=== PATIENT | female | born 1990 | race African-American/Black ===

== ENCOUNTER 2017-03-31 10:49 | Emergency (ER) | payer SELFPAY ==
[~2017-03-31] VITALS: Ht 170.2 cm; Wt 81.6 kg
--- NOTE | 2017-03-31 11:39 | PHYS DOC ---
Past Medical History Past Medical History: Other Additional Past Medical Histor: tumor RLE (KNEE) Past Surgical History: Other Additional Past Surgical Histo: bone marrow transplant Alcohol Use: Occasionally Drug Use: Marijuana Adult General Chief Complaint Chief Complaint: NAUSEA/VOMITING/DIARRHA HPI HPI Patient is a 27 year old female who presents with complaint of nausea and vomiting for the past 3 days. Patient states that she has been having several episodes of vomiting and has had cramping abdominal pain with loose stools. Patient states currently she does not have any pain. Patient states she only gets the pain right before having a bowel movement. Patient denies any known sick contacts but states that she does work at a [employer] and may have contracted something from there. The patient denies any fevers. Patient states that she tried to take Tylenol for symptoms with no relief. Patient states that she has been drinking fluids but has not been eating much over the past few days. Patient states her last missed her period was March 27, 2017. Patient denies any abdominal surgeries. Review of Systems Review of Systems Constitutional: Denies fever or chills [] Eyes: Denies change in visual acuity, redness, or eye pain [] HENT: Denies nasal congestion or sore throat [] Respiratory: Denies cough or shortness of breath [] Cardiovascular: Denies chest pain or edema [] GI: Nausea, vomiting, diarrhea, abdominal cramps [] : Denies vaginal bleeding, abnormal discharge, dysuria, or hematuria [] Musculoskeletal: Denies back pain or joint pain [] Integument: Denies rash or skin lesions [] Neurologic: Denies headache, focal weakness or sensory changes [] Current Medications Current Medications Current Medications Medications (Trade) Dose Ordered Sig/[facility] Start Time Stop Time Status Last Admin Dose Admin Ondansetron HCl (Zofran Odt) 8 mg 1X ONCE 03/31/17 12:00 03/31/17 12:01 DC 03/31/17 11:42 8 MG Allergies Allergies Allergies Coded Allergies Type Severity Reaction Last Updated Verified Penicillins Allergy Intermediate 06/06/16 Yes morphine Allergy Intermediate hives 02/16/14 No Physical Exam Physical Exam Constitutional: Well developed, well nourished, no acute distress, non-toxic appearance. [] HENT: Normocephalic, atraumatic, bilateral external ears normal, oropharynx moist, no oral exudates, nose normal. [] Eyes: PERRLA, EOMI, conjunctiva normal, no discharge. [] Neck: Normal range of motion, no tenderness, supple, no stridor. [] Cardiovascular:Heart rate regular rhythm, no murmur [] Lungs & Thorax: Bilateral breath sounds clear to auscultation [] Abdomen: Bowel sounds normal, soft, no tenderness, no masses, no pulsatile masses. [] Skin: Warm, dry, no erythema, no rash. [] Back: No tenderness, no CVA tenderness. [] Extremities: No tenderness, no cyanosis, no clubbing, ROM intact, no edema. [] Neurologic: Alert and oriented X 3, normal motor function, normal sensory function, no focal deficits noted. [] Current Patient Data Vital Signs Vital Signs Date Time Temp Pulse Resp B/P (MAP) Pulse Ox O2 Delivery O2 Flow Rate FiO2 03/31/17 11:05 98.3 65 16 111/69 (83) 100 Room Air 98.3 Lab Values Laboratory Tests Test 03/31/17 10:21 03/31/17 11:12 POC Urine HCG, Qualitative Hcg negative (Negative) Urine Collection Type Unknown Urine Color Yellow Urine Clarity Cloudy Urine pH 6.0 Urine Specific Hawley 1.015 Urine Protein Negative mg/dL (NEG-TRACE) Urine Glucose (UA) Negative mg/dL (NEG) Urine Ketones (Stick) Negative mg/dL (NEG) Urine Blood Large (NEG) Urine Nitrite Negative (NEG) Urine Bilirubin Negative (NEG) Urine Urobilinogen Dipstick 0.2 mg/dL (0.2 mg/dL) Urine Leukocyte Esterase Small (NEG) Urine RBC 3-5 /HPF (0-2) Urine WBC 11-20 /HPF (0-4) Urine Squamous Epithelial Cells Many /LPF Urine Bacteria Many /HPF (0-FEW) Urine Mucus Marked /LPF EKG EKG Not performed [] Radiology/Procedures Radiology/Procedures Not performed [] Course & Med Decision Making Course & Med Decision Making Pertinent Labs and Imaging studies reviewed. (See chart for details) The patient was given oral Zofran in the emergency department with improvement in symptoms. The patient's symptoms appear consistent with a viral gastroenteritis. Patient's urinalysis shows evidence of urinary tract infection. The patient will be started on Macrobid for 7 days of treatment. Patient also will be prescribed Zofran to help with treatment and nausea. Advise follow-up in 3-5 days a primary doctor for reevaluation and return to emergency department for any worsening symptoms. Patient was understanding and in agreement with treatment plan. Dragon Disclaimer Dragon Disclaimer This electronic medical record was generated, in whole or in part, using a voice recognition dictation system. Departure Departure Impression: Primary Impression: Nausea and vomiting Additional Impressions: Diarrhea Urinary tract infection Disposition: HOME, SELF-CARE Condition: IMPROVED Referrals: NO PCP (PCP) Patient Instructions: Diarrhea, Nausea and Vomiting, Urinary Tract Infection Additional Instructions: Follow-up with your primary doctor in 3-5 days of symptoms are not improving. Return to the emergency department for any worsening symptoms. Scripts Ondansetron (ZOFRAN ODT) 4 Mg Tab.rapdis 1 TAB SL Q6HRS Y for NAUSEA/VOMITING, #15 TAB Prov: JOLIE JENKINS MD 03/31/17 Nitrofurantoin Monohyd/M-Cryst (MACROBID 100 MG CAPSULE) 100 Mg Capsule 1 CAP PO BID, #14 CAP Prov: JOLIE JENKINS MD 03/31/17 Problem Qualifiers Primary Impression: Nausea and vomiting Vomiting type: unspecified Vomiting Intractability: non-intractable Qualified Codes: R11.2 - Nausea with vomiting, unspecified Additional Impressions: Diarrhea Diarrhea type: presumed infectious Qualified Codes: A09 - Infectious gastroenteritis and colitis, unspecified Urinary tract infection Urinary tract infection type: site unspecified Hematuria presence: without hematuria Qualified Codes: N39.0 - Urinary tract infection, site not specified JOLIE JENKINS MD Mar 31, 2017 11:39
[2017-03-31 11:46] LABS: BILIRUBIN,URINE NEGATIVE (NEG); GLUCOSE,URINE NEGATIVE (NEG); NITRITE,URINE NEGATIVE (NEG); PROTEIN,URINE NEGATIVE (NEG-TRACE); UROBILINOGEN,URINE 0.2 mg/dL (0.2 mg/dL)
[2017-03-31] MEDS ORDERED: ONDANSETRON ODT 4 MG TAB.RAPDIS. PO ONE (12:00)
[2017-03-31 12:06] LABS: SQUAMOUS EPITHELIAL CELL,UR MANY /LPF
[2017-03-31 12:07] LABS: BACTERIA,URINE MANY /HPF (0-FEW)
[2017-03-31 12:10] VITALS: BP 105/58
[2017-03-31] MEDS ORDERED: ONDA4TAB10 SL (12:14)
[2017-03-31] MEDS ORDERED: NITR100C62 PO (12:14)
== END 2017-03-31 12:32 | disposition home or self-care (01) ==
LOC: ER 10:49
DX: R11.2 Nausea with vomiting, unspecified (principal); A09 Infectious gastroenteritis and colitis, unspecified; N39.0 Urinary tract infection, site not specified; F12.10 Cannabis abuse, uncomplicated; Z88.0 Allergy status to penicillin; Z88.5 Allergy status to narcotic agent
CPT/HCPCS: 81001; 81025; 87086; 99284; Q0162; 10120; 99285-25

== ENCOUNTER 2017-11-26 16:07 | Observation (INO) | payer OTHER ==
[2017-11-26] MEDS ORDERED: IV DEXTROSE 5%-LACT RINGERS 1,000 ML IV (16:45)
[2017-11-26] MEDS: chlorproMAZINE 25 MG in IV DEXTROSE 5% 50 ML IV (17:37)
[2017-11-26 17:42] LABS: ADD MAN DIFF? NO
[2017-11-26 17:45] LABS: BASO # 0.1 x10^3/uL (0.0-0.2); BASO % 1 % (0-3); EOS # 0.1 x10^3/uL (0.0-0.7); EOS % 1 % (0-3); HEMATOCRIT 33.6 % (36.0-47.0); HEMOGLOBIN 11.2 g/dL (12.0-15.5); LYMPH # 2.3 x10^3/uL (1.0-4.8); LYMPH % 19 % (24-48); MEAN CORPUSCULAR HEMOGLOBIN 29 pg (25-35); MEAN CORPUSCULAR HGB CONC 33 g/dL (31-37); MEAN CORPUSCULAR VOLUME 88 fL (79-100); MONO # 0.5 x10^3/uL (0.0-1.1); MONO % 4 % (0-9); NEUT # 8.9 x10^3uL (1.8-7.7); NEUT % 75 % (31-73); PLATELET COUNT 310 x10^3/uL (140-400); RED BLOOD COUNT 3.82 x10^6/uL (3.50-5.40); RED CELL DISTRIBUTION WIDTH 14.3 % (11.5-14.5); WHITE BLOOD COUNT 11.8 x10^3/uL (4.0-11.0)
[2017-11-26 18:04] LABS: ALBUMIN 3.4 g/dL (3.4-5.0); ALBUMIN/GLOBULIN RATIO 0.9 (1.0-1.7); ALK PHOS 60 U/L (46-116); ALT (SGPT) 23 U/L (14-59); ANION GAP 13 (6-14); AST (SGOT) 10 U/L (15-37); BLOOD UREA NITROGEN 5 mg/dL (7-20); BUN/CREATININE RATIO 7 (6-20); CALCIUM 9.1 mg/dL (8.5-10.1); CARBON DIOXIDE 22 mmol/L (21-32); CHLORIDE 101 mmol/L (98-107); CREATININE 0.7 mg/dL (0.6-1.0); GFR 122.4; GLUCOSE 128 mg/dL (70-99); SODIUM 136 mmol/L (136-145); TOTAL BILIRUBIN 0.3 mg/dL (0.2-1.0); TOTAL PROTEIN 7.4 g/dL (6.4-8.2)
[2017-11-26 19:47] LABS: BILIRUBIN,URINE NEGATIVE (NEG); CLARITY,URINE CLOUDY; COLOR,URINE YELLOW; GLUCOSE,URINE NEGATIVE (NEG); NITRITE,URINE NEGATIVE (NEG); PH,URINE 6.5; PROTEIN,URINE NEGATIVE (NEG-TRACE); UROBILINOGEN,URINE 0.2 mg/dL (0.2 mg/dL)
[2017-11-26 19:55] LABS: AMORPHOUS SEDIMENT,UR PRESENT /HPF; BACTERIA,URINE 0 /HPF (0-FEW); RBC,URINE 0 /HPF (0-2); SQUAMOUS EPITHELIAL CELL,UR FEW /LPF; WBC,URINE OCC /HPF (0-4); YEAST,URINE PRESENT /HPF
== END 2017-11-26 21:20 | disposition home or self-care (01) ==
LOC: 3 NORTH 16:07
DX: O21.0 Mild hyperemesis gravidarum (principal); Z3A.10 10 weeks gestation of pregnancy
CPT/HCPCS: 36415; 80053; 81001; 85025; 87086; 96365; G0378; G0379; J3230

== ENCOUNTER 2017-11-27 21:29 | Inpatient (IN) | payer OTHER ==
[2017-11-27] MEDS: METOCLOPRAMIDE HCL 10 MG/2 ML VIAL. IV (22:04)
[2017-11-27] MEDS: IV NORMAL SALINE 1000ML BAG 1,000 ML IV (22:05)
[2017-11-27 22:06] LABS: ADD MAN DIFF? NO
[2017-11-27 22:09] LABS: BASO # 0.1 x10^3/uL (0.0-0.2); BASO % 1 % (0-3); EOS % 0 % (0-3); HEMATOCRIT 35.9 % (36.0-47.0); HEMOGLOBIN 12.1 g/dL (12.0-15.5); LYMPH # 1.9 x10^3/uL (1.0-4.8); LYMPH % 14 % (24-48); MEAN CORPUSCULAR HEMOGLOBIN 29 pg (25-35); MEAN CORPUSCULAR HGB CONC 34 g/dL (31-37); MEAN CORPUSCULAR VOLUME 87 fL (79-100); MONO # 0.4 x10^3/uL (0.0-1.1); MONO % 3 % (0-9); NEUT % 83 % (31-73); PLATELET COUNT 370 x10^3/uL (140-400); RED BLOOD COUNT 4.13 x10^6/uL (3.50-5.40); RED CELL DISTRIBUTION WIDTH 14.1 % (11.5-14.5); WHITE BLOOD COUNT 14.4 x10^3/uL (4.0-11.0)
[2017-11-27 22:17] LABS: ANION GAP 19 (6-14); BLOOD UREA NITROGEN 11 mg/dL (7-20); BUN/CREATININE RATIO 10 (6-20); CALCIUM 10.8 mg/dL (8.5-10.1); CARBON DIOXIDE 18 mmol/L (21-32); CHLORIDE 100 mmol/L (98-107); CREATININE 1.1 mg/dL (0.6-1.0); GFR 72.6; GLUCOSE 142 mg/dL (70-99); POTASSIUM 4.2 mmol/L (3.5-5.1); SODIUM 137 mmol/L (136-145)
[2017-11-27 22:23] LABS: ALBUMIN 4.2 g/dL (3.4-5.0); ALBUMIN/GLOBULIN RATIO 0.9 (1.0-1.7); ALK PHOS 75 U/L (46-116); ALT (SGPT) 33 U/L (14-59); AST (SGOT) 16 U/L (15-37); LIPASE 309 U/L (73-393); TOTAL BILIRUBIN 0.6 mg/dL (0.2-1.0); TOTAL PROTEIN 8.9 g/dL (6.4-8.2)
[2017-11-27] MEDS: ONDANSETRON PF 4 MG/2 ML VIAL. IV (22:59)
[2017-11-27 23:23] LABS: URINE HCG POC HCG POSITIVE (Negative)
[2017-11-27 23:25] LABS: BILIRUBIN,URINE SMALL (NEG); CLARITY,URINE CLEAR; COLOR,URINE AMBER; GLUCOSE,URINE NEGATIVE (NEG); NITRITE,URINE NEGATIVE (NEG); PH,URINE 5.5; PROTEIN,URINE 100 mg/dL (NEG-TRACE); UROBILINOGEN,URINE 0.2 mg/dL (0.2 mg/dL)
[2017-11-27] MEDS ORDERED: ACETAMINOPHEN 325 MG TABLET. PO (23:30)
[2017-11-27 23:33] LABS: BACTERIA,URINE FEW /HPF (0-FEW); RBC,URINE 20-40 /HPF (0-2); SQUAMOUS EPITHELIAL CELL,UR MOD /LPF
[2017-11-27] MEDS: NORMAL SALINE IV (23:42)
[2017-11-27] MEDS: ONDANSETRON IV (23:42)
[2017-11-28] MEDS: fentaNYL PF VIAL 100 MCG/2 ML VIAL IV ×3 (03:11→12:31)
[2017-11-28 05:50] LABS: ANION GAP 18 (6-14); BLOOD UREA NITROGEN 10 mg/dL (7-20); CALCIUM 9.6 mg/dL (8.5-10.1); CARBON DIOXIDE 17 mmol/L (21-32); CHLORIDE 103 mmol/L (98-107); CREATININE 0.9 mg/dL (0.6-1.0); GFR 91.6; GLUCOSE 129 mg/dL (70-99); POTASSIUM 3.2 mmol/L (3.5-5.1); SODIUM 138 mmol/L (136-145)
[2017-11-28] MEDS ORDERED: IV NORMAL SALINE 1000ML BAG 1,000 ML IV (10:00)
[2017-11-28] MEDS: ONDANSETRON IV ×3 (10:15→21:17)
[2017-11-28] MEDS: NORMAL SALINE IV ×3 (10:15→21:17)
[2017-11-28] MEDS: POTASSIUM CHLORIDE IV ×3 (10:15→21:17)
[2017-11-28] MEDS: ONDANSETRON PF 4 MG/2 ML VIAL. IV (12:24)
[2017-11-28] MEDS: chlorproMAZINE 25 MG in IV DEXTROSE 5% 50 ML IV (16:50)
[2017-11-28] MEDS: FAMOTIDINE 20 MG/2 ML VIAL IVP (21:17)
[2017-11-29] MEDS: fentaNYL PF VIAL 100 MCG/2 ML VIAL IV ×2 (01:14→05:43)
[2017-11-29] MEDS: ONDANSETRON IV ×3 (01:15→17:34)
[2017-11-29] MEDS: POTASSIUM CHLORIDE IV ×2 (01:15→07:26)
[2017-11-29] MEDS: NORMAL SALINE IV ×3 (01:15→17:34)
[2017-11-29] MEDS: chlorproMAZINE 25 MG in IV DEXTROSE 5% 50 ML IV ×3 (03:55→20:20)
[2017-11-29 05:49] LABS: HEMATOCRIT 30.1 % (36.0-47.0); MEAN CORPUSCULAR HEMOGLOBIN 29 pg (25-35); MEAN CORPUSCULAR HGB CONC 33 g/dL (31-37); MEAN CORPUSCULAR VOLUME 87 fL (79-100); PLATELET COUNT 263 x10^3/uL (140-400); RED BLOOD COUNT 3.45 x10^6/uL (3.50-5.40); RED CELL DISTRIBUTION WIDTH 14.1 % (11.5-14.5); WHITE BLOOD COUNT 12.1 x10^3/uL (4.0-11.0)
[2017-11-29 06:15] LABS: ALBUMIN 3.3 g/dL (3.4-5.0); ALBUMIN/GLOBULIN RATIO 0.9 (1.0-1.7); ALK PHOS 57 U/L (46-116); ALT (SGPT) 33 U/L (14-59); AMYLASE 79 U/L (25-115); ANION GAP 13 (6-14); AST (SGOT) 16 U/L (15-37); BLOOD UREA NITROGEN 5 mg/dL (7-20); BUN/CREATININE RATIO 7 (6-20); CALCIUM 8.8 mg/dL (8.5-10.1); CARBON DIOXIDE 18 mmol/L (21-32); CHLORIDE 104 mmol/L (98-107); CREATININE 0.7 mg/dL (0.6-1.0); GFR 122.4; GLUCOSE 113 mg/dL (70-99); LIPASE 396 U/L (73-393); POTASSIUM 4.2 mmol/L (3.5-5.1); SODIUM 135 mmol/L (136-145); TOTAL BILIRUBIN 0.4 mg/dL (0.2-1.0)
[2017-11-29] MEDS: FAMOTIDINE 20 MG/2 ML VIAL IVP ×2 (09:19→21:00)
[2017-11-29] MEDS: DICLEGIS PO (21:00)
[2017-11-30] MEDS: ONDANSETRON IV ×6 (01:15→17:10)
[2017-11-30] MEDS: NORMAL SALINE IV ×4 (01:15→07:20)
[2017-11-30] MEDS: chlorproMAZINE 25 MG in IV DEXTROSE 5% 50 ML IV (07:20)
[2017-11-30 08:34] LABS: ALBUMIN 3.1 g/dL (3.4-5.0); ALBUMIN/GLOBULIN RATIO 0.8 (1.0-1.7); ALK PHOS 51 U/L (46-116); ALT (SGPT) 43 U/L (14-59); AMYLASE 89 U/L (25-115); ANION GAP 14 (6-14); AST (SGOT) 22 U/L (15-37); BLOOD UREA NITROGEN 3 mg/dL (7-20); BUN/CREATININE RATIO 4 (6-20); CALCIUM 8.6 mg/dL (8.5-10.1); CARBON DIOXIDE 19 mmol/L (21-32); CHLORIDE 103 mmol/L (98-107); CREATININE 0.7 mg/dL (0.6-1.0); GFR 122.4; GLUCOSE 95 mg/dL (70-99); LIPASE 523 U/L (73-393); SODIUM 136 mmol/L (136-145); TOTAL BILIRUBIN 0.6 mg/dL (0.2-1.0)
[2017-11-30 08:38] LABS: POTASSIUM 3.1 mmol/L (3.5-5.1)
[2017-11-30] MEDS: FAMOTIDINE 20 MG TABLET. PO ×2 (09:27→21:00)
[2017-11-30] MEDS: DICLEGIS PO ×3 (09:28→22:00)
[2017-11-30] MEDS ORDERED: RINGERS LACTATED IV (12:00)
[2017-11-30] MEDS ORDERED: ONDANSETRON IV (12:00)
[2017-11-30] MEDS: POTASSIUM CHLORIDE IV (13:46)
[2017-11-30] MEDS: RINGERS LACTATED IV ×2 (13:46→17:10)
[2017-11-30] MEDS ORDERED: ONDANSETRON PF 4 MG/2 ML VIAL. IV ×2 (14:00→21:00)
[2017-12-01] MEDS: RINGERS LACTATED IV ×2 (04:10→13:21)
[2017-12-01] MEDS: ONDANSETRON IV ×2 (04:10→13:21)
[2017-12-01 07:15] LABS: TRIGLYCERIDES 71 mg/dL (0-150)
[2017-12-01] MEDS ORDERED: 0.9 % SODIUM CHLORIDE 10 ML DISP.SYRIN. IV ×3 (08:45)
[2017-12-01] MEDS: DICLEGIS PO ×3 (09:00→20:51)
[2017-12-01] MEDS: FAMOTIDINE 20 MG TABLET. PO ×2 (10:32→20:43)
[2017-12-01] MEDS: fentaNYL PF VIAL 100 MCG/2 ML VIAL IV (12:45)
[2017-12-02] MEDS: RINGERS LACTATED IV (04:37)
[2017-12-02] MEDS: ONDANSETRON IV (04:37)
[2017-12-02] MEDS: FAMOTIDINE 20 MG TABLET. PO (09:03)
[2017-12-02] MEDS: DICLEGIS PO ×2 (09:03→14:00)
[2017-12-02 10:11] LABS: ADD MAN DIFF? NO
[2017-12-02 10:26] LABS: BASO # 0.1 x10^3/uL (0.0-0.2); BASO % 1 % (0-3); EOS # 0.1 x10^3/uL (0.0-0.7); EOS % 1 % (0-3); HEMATOCRIT 29.3 % (36.0-47.0); HEMOGLOBIN 9.7 g/dL (12.0-15.5); LYMPH # 2.3 x10^3/uL (1.0-4.8); LYMPH % 25 % (24-48); MEAN CORPUSCULAR HEMOGLOBIN 30 pg (25-35); MEAN CORPUSCULAR HGB CONC 33 g/dL (31-37); MEAN CORPUSCULAR VOLUME 89 fL (79-100); MONO # 0.6 x10^3/uL (0.0-1.1); MONO % 6 % (0-9); NEUT # 6.2 x10^3uL (1.8-7.7); NEUT % 67 % (31-73); PLATELET COUNT 224 x10^3/uL (140-400); RED CELL DISTRIBUTION WIDTH 13.8 % (11.5-14.5); WHITE BLOOD COUNT 9.2 x10^3/uL (4.0-11.0)
[2017-12-02 10:27] LABS: ALBUMIN 2.7 g/dL (3.4-5.0); ALBUMIN/GLOBULIN RATIO 0.7 (1.0-1.7); ALK PHOS 57 U/L (46-116); ALT (SGPT) 79 U/L (14-59); AMYLASE 65 U/L (25-115); ANION GAP 11 (6-14); AST (SGOT) 26 U/L (15-37); BLOOD UREA NITROGEN 3 mg/dL (7-20); BUN/CREATININE RATIO 4 (6-20); CALCIUM 8.8 mg/dL (8.5-10.1); CARBON DIOXIDE 25 mmol/L (21-32); CHLORIDE 99 mmol/L (98-107); CREATININE 0.8 mg/dL (0.6-1.0); GFR 104.9; GLUCOSE 135 mg/dL (70-99); LIPASE 619 U/L (73-393); MAGNESIUM 1.8 mg/dL (1.8-2.4); POTASSIUM 3.5 mmol/L (3.5-5.1); SODIUM 135 mmol/L (136-145); TOTAL BILIRUBIN 0.2 mg/dL (0.2-1.0); TOTAL PROTEIN 6.6 g/dL (6.4-8.2)
== END 2017-12-02 18:12 | disposition home or self-care (01) | DRG 781 ==
LOC: ER 21:29 → 3 NORTH 11-28 09:12 → 6 SOUTH 23:06
DX: O21.1 Hyperemesis gravidarum with metabolic disturbance (principal); O23.41 Unspecified infection of urinary tract in pregnancy, first trimester; O99.011 Anemia complicating pregnancy, first trimester; O99.281 Endocrine, nutritional and metabolic diseases complicating pregnancy, first trimester; Z3A.10 10 weeks gestation of pregnancy; D64.9 Anemia, unspecified; E86.0 Dehydration; Z88.0 Allergy status to penicillin; Z88.8 Allergy status to other drugs, medicaments and biological substances; O26.891 Other specified pregnancy related conditions, first trimester; K59.00 Constipation, unspecified
CPT/HCPCS: 36415; 36569; 76705; 80048; 80053; 81001; 81025; 82150; 83690; 83735; 84478; 85025; 85027; 87086; 96361; 96374; 96375; 96376; 99285-25; J0690; J2060; J2405; J2765; J3010; J3230; J3480; J7030; J7120; S0028

== ENCOUNTER 2017-12-04 19:10 | Inpatient (IN) | payer OTHER ==
[2017-12-04] MEDS: IV NORMAL SALINE 1000ML BAG 1,000 ML IV (20:07)
[2017-12-04 20:27] LABS: BILIRUBIN,URINE NEGATIVE (NEG); CLARITY,URINE CLOUDY; COLOR,URINE AMBER; GLUCOSE,URINE NEGATIVE (NEG); NITRITE,URINE NEGATIVE (NEG); PH,URINE 8.5; PROTEIN,URINE 100 mg/dL (NEG-TRACE)
[2017-12-04 20:29] LABS: URINE HCG POC HCG POSITIVE (Negative)
[2017-12-04 20:34] LABS: BACTERIA,URINE MANY /HPF (0-FEW); RBC,URINE OCC /HPF (0-2)
[2017-12-04 20:36] LABS: SQUAMOUS EPITHELIAL CELL,UR MOD /LPF; YEAST,URINE PRESENT /HPF
[2017-12-04] MEDS: ONDANSETRON PF 4 MG/2 ML VIAL. IV (20:40)
[2017-12-04] MEDS: MAG HYDROX/ALUMINUM HYD/SIMETH 30 ML ORAL.SUSP PO (20:40)
[2017-12-04] MEDS ORDERED: ONDANSETRON PF 4 MG/2 ML VIAL. IV (20:45)
[2017-12-04] MEDS: RINGERS LACTATED IV (20:53)
[2017-12-04] MEDS: ONDANSETRON IV (20:53)
[2017-12-04 21:15] LABS: ADD MAN DIFF? NO
[2017-12-04 21:16] LABS: BASO # 0.1 x10^3/uL (0.0-0.2); BASO % 1 % (0-3); EOS % 0 % (0-3); HEMATOCRIT 31.4 % (36.0-47.0); HEMOGLOBIN 10.4 g/dL (12.0-15.5); LYMPH # 2.5 x10^3/uL (1.0-4.8); LYMPH % 22 % (24-48); MEAN CORPUSCULAR HEMOGLOBIN 29 pg (25-35); MEAN CORPUSCULAR HGB CONC 33 g/dL (31-37); MEAN CORPUSCULAR VOLUME 87 fL (79-100); MONO # 0.5 x10^3/uL (0.0-1.1); MONO % 4 % (0-9); NEUT # 8.4 x10^3uL (1.8-7.7); NEUT % 73 % (31-73); PLATELET COUNT 267 x10^3/uL (140-400); RED BLOOD COUNT 3.59 x10^6/uL (3.50-5.40); RED CELL DISTRIBUTION WIDTH 13.6 % (11.5-14.5); WHITE BLOOD COUNT 11.6 x10^3/uL (4.0-11.0)
[2017-12-04 21:28] LABS: ANION GAP 13 (6-14); BLOOD UREA NITROGEN 5 mg/dL (7-20); BUN/CREATININE RATIO 7 (6-20); CARBON DIOXIDE 21 mmol/L (21-32); CHLORIDE 102 mmol/L (98-107); CREATININE 0.7 mg/dL (0.6-1.0); GFR 122.4; GLUCOSE 125 mg/dL (70-99); POTASSIUM 3.3 mmol/L (3.5-5.1); SODIUM 136 mmol/L (136-145)
[2017-12-04 21:35] LABS: ALBUMIN 3.3 g/dL (3.4-5.0); ALBUMIN/GLOBULIN RATIO 0.8 (1.0-1.7); ALK PHOS 65 U/L (46-116); ALT (SGPT) 95 U/L (14-59); AST (SGOT) 30 U/L (15-37); MAGNESIUM 1.5 mg/dL (1.8-2.4); TOTAL BILIRUBIN 0.5 mg/dL (0.2-1.0); TOTAL PROTEIN 7.7 g/dL (6.4-8.2)
[2017-12-05] MEDS: RINGERS LACTATED IV ×4 (02:42→20:26)
[2017-12-05] MEDS: ONDANSETRON IV ×4 (02:42→20:26)
[2017-12-05] MEDS: BISACODYL 10 MG SUPP.RECT. PR (17:44)
[2017-12-06] MEDS: RINGERS LACTATED IV ×3 (01:47→15:42)
[2017-12-06] MEDS: ONDANSETRON IV ×3 (01:47→15:42)
[2017-12-06] MEDS: FAMOTIDINE 20 MG TABLET. PO ×2 (16:09→21:14)
[2017-12-06] MEDS: CLOTRIMAZOLE 1% VAGINAL CREAM 45GM TUBE. VG (20:57)
[2017-12-07] MEDS: ONDANSETRON IV ×3 (01:22→22:42)
[2017-12-07] MEDS: RINGERS LACTATED IV ×3 (01:22→22:42)
[2017-12-07 05:06] LABS: ADD MAN DIFF? NO
[2017-12-07 05:41] LABS: ALBUMIN 2.7 g/dL (3.4-5.0); ALBUMIN/GLOBULIN RATIO 0.7 (1.0-1.7); ALK PHOS 52 U/L (46-116); ALT (SGPT) 74 U/L (14-59); AMYLASE 57 U/L (25-115); ANION GAP 10 (6-14); AST (SGOT) 19 U/L (15-37); BLOOD UREA NITROGEN 2 mg/dL (7-20); BUN/CREATININE RATIO 3 (6-20); CALCIUM 8.6 mg/dL (8.5-10.1); CARBON DIOXIDE 22 mmol/L (21-32); CHLORIDE 103 mmol/L (98-107); CREATININE 0.7 mg/dL (0.6-1.0); GFR 122.4; GLUCOSE 82 mg/dL (70-99); LIPASE 382 U/L (73-393); POTASSIUM 3.4 mmol/L (3.5-5.1); SODIUM 135 mmol/L (136-145); TOTAL BILIRUBIN 0.3 mg/dL (0.2-1.0); TOTAL PROTEIN 6.4 g/dL (6.4-8.2)
[2017-12-07 05:43] LABS: BASO % 1 % (0-3); EOS # 0.1 x10^3/uL (0.0-0.7); EOS % 1 % (0-3); HEMATOCRIT 28.1 % (36.0-47.0); HEMOGLOBIN 9.4 g/dL (12.0-15.5); LYMPH # 2.9 x10^3/uL (1.0-4.8); LYMPH % 32 % (24-48); MEAN CORPUSCULAR HEMOGLOBIN 29 pg (25-35); MEAN CORPUSCULAR HGB CONC 34 g/dL (31-37); MEAN CORPUSCULAR VOLUME 87 fL (79-100); MONO # 0.5 x10^3/uL (0.0-1.1); MONO % 5 % (0-9); NEUT # 5.6 x10^3uL (1.8-7.7); NEUT % 62 % (31-73); PLATELET COUNT 217 x10^3/uL (140-400); RED BLOOD COUNT 3.23 x10^6/uL (3.50-5.40); RED CELL DISTRIBUTION WIDTH 13.5 % (11.5-14.5); WHITE BLOOD COUNT 9.1 x10^3/uL (4.0-11.0)
[2017-12-07] MEDS: FAMOTIDINE 20 MG TABLET. PO ×2 (09:03→22:42)
[2017-12-07] MEDS: CLOTRIMAZOLE 1% VAGINAL CREAM 45GM TUBE. VG (21:00)
[2017-12-08] MEDS: RINGERS LACTATED IV (09:01)
[2017-12-08] MEDS: ONDANSETRON IV (09:01)
[2017-12-08] MEDS: FAMOTIDINE 20 MG TABLET. PO (09:01)
== END 2017-12-08 17:55 | disposition home or self-care (01) | DRG 781 ==
LOC: 3 SO LND 12-06 13:05 → ER 19:10 → 3 NORTH 20:40
DX: O21.9 Vomiting of pregnancy, unspecified (principal); Z3A.11 11 weeks gestation of pregnancy; Z88.0 Allergy status to penicillin; Z88.8 Allergy status to other drugs, medicaments and biological substances
CPT/HCPCS: 36415; 76815; 80053; 81001; 81025; 82150; 83690; 83735; 85025; 87086; 96374; 99285-25; J2405; J7030; J7120

== ENCOUNTER 2017-12-25 08:44 | Emergency (ER) | payer OTHER ==
[2017-12-25] MEDS: PROMETHAZINE IM 25 MG/ML VIAL IM (09:50)
[2017-12-25] MEDS: ONDANSETRON PF 4 MG/2 ML VIAL. IV (09:50)
[2017-12-25] MEDS: IV NORMAL SALINE 1000ML BAG 1,000 ML IV ×2 (09:51→11:38)
[2017-12-25 10:08] LABS: BASO # 0.1 x10^3/uL (0.0-0.2); BASO % 1 % (0-3); EOS % 0 % (0-3); HEMATOCRIT 34.2 % (36.0-47.0); HEMOGLOBIN 11.8 g/dL (12.0-15.5); LYMPH # 1.4 x10^3/uL (1.0-4.8); LYMPH % 9 % (24-48); MEAN CORPUSCULAR HEMOGLOBIN 29 pg (25-35); MEAN CORPUSCULAR HGB CONC 34 g/dL (31-37); MEAN CORPUSCULAR VOLUME 86 fL (79-100); MONO # 0.4 x10^3/uL (0.0-1.1); MONO % 3 % (0-9); NEUT # 13.6 x10^3uL (1.8-7.7); NEUT % 88 % (31-73); PLATELET COUNT 334 x10^3/uL (140-400); RED BLOOD COUNT 4.01 x10^6/uL (3.50-5.40); RED CELL DISTRIBUTION WIDTH 13.2 % (11.5-14.5); WHITE BLOOD COUNT 15.5 x10^3/uL (4.0-11.0)
[2017-12-25 10:09] LABS: BILIRUBIN,URINE NEGATIVE (NEG); CLARITY,URINE CLEAR; COLOR,URINE AMBER; GLUCOSE,URINE NEGATIVE (NEG); NITRITE,URINE NEGATIVE (NEG); PROTEIN,URINE 100 mg/dL (NEG-TRACE); UROBILINOGEN,URINE 0.2 mg/dL (0.2 mg/dL)
[2017-12-25 10:14] LABS: ANION GAP 20 (6-14); BLOOD UREA NITROGEN 8 mg/dL (7-20); BUN/CREATININE RATIO 9 (6-20); CALCIUM 10.5 mg/dL (8.5-10.1); CARBON DIOXIDE 18 mmol/L (21-32); CHLORIDE 100 mmol/L (98-107); CREATININE 0.9 mg/dL (0.6-1.0); GFR 91.6; GLUCOSE 141 mg/dL (70-99); POTASSIUM 3.7 mmol/L (3.5-5.1); SODIUM 138 mmol/L (136-145)
[2017-12-25 10:21] LABS: ALBUMIN 4.1 g/dL (3.4-5.0); ALBUMIN/GLOBULIN RATIO 0.8 (1.0-1.7); ALK PHOS 69 U/L (46-116); ALT (SGPT) 239 U/L (14-59); AST (SGOT) 103 U/L (15-37); BACTERIA,URINE FEW /HPF (0-FEW); LIPASE 187 U/L (73-393); RBC,URINE 0 /HPF (0-2); SQUAMOUS EPITHELIAL CELL,UR MANY /LPF; TOTAL BILIRUBIN 0.5 mg/dL (0.2-1.0); TOTAL PROTEIN 9.2 g/dL (6.4-8.2)
[2017-12-25 10:23] LABS: ADD MAN DIFF? YES
[2017-12-25 12:37] LABS: % BANDS 7 % (0-9); % LYMPHS 8 % (24-48); % MONOS 6 % (0-10); % SEGS 79 % (35-66); PLT ESTIMATE ADEQUATE (ADEQUATE)
== END 2017-12-25 12:50 | disposition home or self-care (01) ==
LOC: ER 08:44
DX: O21.0 Mild hyperemesis gravidarum (principal); Z88.0 Allergy status to penicillin; Z88.5 Allergy status to narcotic agent; Z3A.14 14 weeks gestation of pregnancy
CPT/HCPCS: 36415; 80053; 81001; 83690; 85007; 85025; 87086; 96361; 96372; 96374; 99284; J2405; J2550; J7030

== ENCOUNTER 2017-12-26 01:14 | Inpatient (IN) | payer OTHER ==
[2017-12-26] MEDS: PROMETHAZINE 12.5 MG in IV NORMAL SALINE 50ML 50 ML IV ×2 (02:08→02:48)
[2017-12-26] MEDS: IV RINGERS,LACTATED 1000ML 1,000 ML IV ×2 (02:09→20:15)
[2017-12-26 02:42] LABS: BASO # 0.2 x10^3/uL (0.0-0.2); BASO % 1 % (0-3); EOS % 0 % (0-3); HEMATOCRIT 32.9 % (36.0-47.0); HEMOGLOBIN 11.1 g/dL (12.0-15.5); LYMPH # 2.5 x10^3/uL (1.0-4.8); LYMPH % 14 % (24-48); MEAN CORPUSCULAR HEMOGLOBIN 29 pg (25-35); MEAN CORPUSCULAR HGB CONC 34 g/dL (31-37); MEAN CORPUSCULAR VOLUME 87 fL (79-100); MONO # 0.6 x10^3/uL (0.0-1.1); MONO % 3 % (0-9); NEUT % 82 % (31-73); PLATELET COUNT 317 x10^3/uL (140-400); RED BLOOD COUNT 3.79 x10^6/uL (3.50-5.40); RED CELL DISTRIBUTION WIDTH 13.4 % (11.5-14.5); WHITE BLOOD COUNT 18.2 x10^3/uL (4.0-11.0)
[2017-12-26 02:43] LABS: ADD MAN DIFF? YES
[2017-12-26 02:51] LABS: ANION GAP 17 (6-14); BLOOD UREA NITROGEN 7 mg/dL (7-20); BUN/CREATININE RATIO 10 (6-20); CALCIUM 9.9 mg/dL (8.5-10.1); CARBON DIOXIDE 18 mmol/L (21-32); CHLORIDE 104 mmol/L (98-107); CREATININE 0.7 mg/dL (0.6-1.0); GFR 122.4; GLUCOSE 113 mg/dL (70-99); POTASSIUM 3.6 mmol/L (3.5-5.1); SODIUM 139 mmol/L (136-145)
[2017-12-26 02:57] LABS: ALBUMIN 3.7 g/dL (3.4-5.0); ALBUMIN/GLOBULIN RATIO 0.8 (1.0-1.7); ALK PHOS 64 U/L (46-116); ALT (SGPT) 244 U/L (14-59); AST (SGOT) 101 U/L (15-37); LIPASE 216 U/L (73-393); TOTAL BILIRUBIN 0.8 mg/dL (0.2-1.0); TOTAL PROTEIN 8.1 g/dL (6.4-8.2)
[2017-12-26 03:35] LABS: BASE EXCESS ABG -3 mmol/L (-3-3); HCO3 ABG 16 mmol/L (21-28); PO2 ABG 103 mmHg (85-108)
[2017-12-26 03:38] LABS: FIO2 ABG 21; PCO2 ABG 17 mmHg (35-46); PH ABG 7.58 (7.35-7.45); SAT O2 ABG 99 % (92-99)
[2017-12-26] MEDS ORDERED: IV NORMAL SALINE 1000ML BAG 1,000 ML IV (04:00)
[2017-12-26] MEDS ORDERED: ONDANSETRON PF 4 MG/2 ML VIAL. IV ×2 (04:00→06:00)
[2017-12-26 04:30] LABS: LACTIC ACID 1.3 mmol/L (0.4-2.0)
[2017-12-26 05:05] LABS: % BANDS 1 % (0-9); % LYMPHS 13 % (24-48); % MONOS 3 % (0-10); % SEGS 83 % (35-66)
[2017-12-26 05:06] LABS: PLT ESTIMATE ADEQUATE (ADEQUATE)
[2017-12-26] MEDS ORDERED: 0.9 % SODIUM CHLORIDE 10 ML DISP.SYRIN. IV (05:30)
[2017-12-26] MEDS: ONDANSETRON PF 4 MG/2 ML VIAL. IV ×3 (06:00→18:29)
[2017-12-26] MEDS: IV RINGERS,LACTATED 500ML 1,000 ML IV (06:00)
[2017-12-26] MEDS: PRENATAL MULTIVITAMIN TABLET. PO (09:00)
[2017-12-26] MEDS: METOCLOPRAMIDE HCL 10 MG/2 ML VIAL. IV ×2 (14:00→20:16)
[2017-12-26 14:53] LABS: BILIRUBIN,URINE NEGATIVE (NEG); CLARITY,URINE CLOUDY; COLOR,URINE YELLOW; GLUCOSE,URINE NEGATIVE (NEG); NITRITE,URINE NEGATIVE (NEG); PH,URINE 7.5; PROTEIN,URINE NEGATIVE (NEG-TRACE)
[2017-12-26 15:27] LABS: BACTERIA,URINE 0 /HPF (0-FEW); RBC,URINE 0 /HPF (0-2); SQUAMOUS EPITHELIAL CELL,UR MOD /LPF
[2017-12-26] MEDS: FAMOTIDINE 20 MG/2 ML VIAL IVP (22:15)
[2017-12-26] MEDS: MAG HYDROX/ALUMINUM HYD/SIMETH 30 ML ORAL.SUSP PO (22:15)
[2017-12-27] MEDS: ONDANSETRON PF 4 MG/2 ML VIAL. IV (01:31)
[2017-12-27 03:04] LABS: ADD MAN DIFF? NO
[2017-12-27 03:06] LABS: BASO # 0.1 x10^3/uL (0.0-0.2); BASO % 1 % (0-3); EOS % 0 % (0-3); HEMATOCRIT 28.2 % (36.0-47.0); HEMOGLOBIN 9.8 g/dL (12.0-15.5); LYMPH # 2.5 x10^3/uL (1.0-4.8); LYMPH % 17 % (24-48); MEAN CORPUSCULAR HEMOGLOBIN 30 pg (25-35); MEAN CORPUSCULAR HGB CONC 35 g/dL (31-37); MEAN CORPUSCULAR VOLUME 85 fL (79-100); MONO # 0.7 x10^3/uL (0.0-1.1); MONO % 5 % (0-9); NEUT # 11.1 x10^3uL (1.8-7.7); NEUT % 77 % (31-73); PLATELET COUNT 249 x10^3/uL (140-400); RED BLOOD COUNT 3.31 x10^6/uL (3.50-5.40); RED CELL DISTRIBUTION WIDTH 13.1 % (11.5-14.5); WHITE BLOOD COUNT 14.4 x10^3/uL (4.0-11.0)
[2017-12-27 03:24] LABS: ALBUMIN/GLOBULIN RATIO 0.7 (1.0-1.7); ALK PHOS 56 U/L (46-116); ALT (SGPT) 242 U/L (14-59); AMYLASE 51 U/L (25-115); ANION GAP 15 (6-14); AST (SGOT) 97 U/L (15-37); BLOOD UREA NITROGEN 3 mg/dL (7-20); BUN/CREATININE RATIO 6 (6-20); CALCIUM 8.4 mg/dL (8.5-10.1); CARBON DIOXIDE 19 mmol/L (21-32); CHLORIDE 100 mmol/L (98-107); CREATININE 0.5 mg/dL (0.6-1.0); GFR 180.5; GLUCOSE 100 mg/dL (70-99); LIPASE 162 U/L (73-393); SODIUM 134 mmol/L (136-145); TOTAL BILIRUBIN 0.5 mg/dL (0.2-1.0); TOTAL PROTEIN 7.1 g/dL (6.4-8.2)
[2017-12-27] MEDS: IV RINGERS,LACTATED 1000ML 1,000 ML IV ×2 (03:30→11:22)
[2017-12-27 04:37] LABS: POTASSIUM 2.9 mmol/L (3.5-5.1)
[2017-12-27] MEDS: PRENATAL MULTIVITAMIN TABLET. PO (11:22)
[2017-12-27] MEDS: FAMOTIDINE 20 MG/2 ML VIAL IVP ×2 (12:25→21:50)
[2017-12-27] MEDS: RINGERS LACTATED IV ×3 (14:51→22:06)
[2017-12-27] MEDS: POTASSIUM ACETATE IV ×3 (14:51→22:06)
[2017-12-28] MEDS: RINGERS LACTATED IV ×4 (04:22→23:23)
[2017-12-28] MEDS: POTASSIUM ACETATE IV ×4 (04:22→23:23)
[2017-12-28] MEDS: PRENATAL MULTIVITAMIN TABLET. PO (08:57)
[2017-12-28] MEDS: FAMOTIDINE 20 MG/2 ML VIAL IVP ×2 (08:57→21:38)
[2017-12-28 11:18] LABS: ALBUMIN 2.6 g/dL (3.4-5.0); ALBUMIN/GLOBULIN RATIO 0.7 (1.0-1.7); ALK PHOS 48 U/L (46-116); ALT (SGPT) 253 U/L (14-59); ANION GAP 10 (6-14); AST (SGOT) 80 U/L (15-37); BLOOD UREA NITROGEN 3 mg/dL (7-20); BUN/CREATININE RATIO 5 (6-20); CALCIUM 8.3 mg/dL (8.5-10.1); CARBON DIOXIDE 25 mmol/L (21-32); CHLORIDE 101 mmol/L (98-107); CREATININE 0.6 mg/dL (0.6-1.0); GFR 146.2; GLUCOSE 108 mg/dL (70-99); POTASSIUM 3.1 mmol/L (3.5-5.1); SODIUM 136 mmol/L (136-145); TOTAL BILIRUBIN 0.3 mg/dL (0.2-1.0); TOTAL PROTEIN 6.4 g/dL (6.4-8.2)
[2017-12-28] MEDS: METOCLOPRAMIDE HCL 10 MG/2 ML VIAL. IV ×2 (12:52→18:52)
[2017-12-28] MEDS: ONDANSETRON PF 4 MG/2 ML VIAL. IV (15:53)
[2017-12-29] MEDS: RINGERS LACTATED IV ×4 (03:11→17:51)
[2017-12-29] MEDS: POTASSIUM ACETATE IV ×4 (03:11→17:51)
[2017-12-29] MEDS: FAMOTIDINE 20 MG/2 ML VIAL IVP ×2 (09:34→20:40)
[2017-12-29] MEDS: PRENATAL MULTIVITAMIN TABLET. PO (09:34)
[2017-12-29] MEDS: METOCLOPRAMIDE 10 MG TABLET. PO (09:52)
[2017-12-29] MEDS ORDERED: ONDANSETRON ODT 4 MG TAB.RAPDIS. PO (10:45)
[2017-12-29] MEDS: PROMETHAZINE 25 MG SUPP.RECT. PR (16:03)
[2017-12-30] MEDS: RINGERS LACTATED IV ×5 (00:50→20:18)
[2017-12-30] MEDS: POTASSIUM ACETATE IV ×5 (00:50→20:18)
[2017-12-30 07:03] LABS: ALBUMIN 2.7 g/dL (3.4-5.0); ALBUMIN/GLOBULIN RATIO 0.7 (1.0-1.7); ALK PHOS 52 U/L (46-116); ALT (SGPT) 235 U/L (14-59); ANION GAP 10 (6-14); AST (SGOT) 66 U/L (15-37); BLOOD UREA NITROGEN 3 mg/dL (7-20); BUN/CREATININE RATIO 6 (6-20); CALCIUM 8.7 mg/dL (8.5-10.1); CARBON DIOXIDE 22 mmol/L (21-32); CHLORIDE 100 mmol/L (98-107); CREATININE 0.5 mg/dL (0.6-1.0); GFR 180.5; GLUCOSE 83 mg/dL (70-99); POTASSIUM 3.6 mmol/L (3.5-5.1); SODIUM 132 mmol/L (136-145); TOTAL BILIRUBIN 0.4 mg/dL (0.2-1.0); TOTAL PROTEIN 6.6 g/dL (6.4-8.2)
[2017-12-30] MEDS: METOCLOPRAMIDE HCL 10 MG/2 ML VIAL. IV (09:20)
[2017-12-30] MEDS ORDERED: PROMETHAZINE 25 MG SUPP.RECT. PR (10:00)
[2017-12-30] MEDS: FAMOTIDINE 20 MG/2 ML VIAL IVP ×2 (12:19→20:20)
[2017-12-30] MEDS: PRENATAL MULTIVITAMIN TABLET. PO (18:38)
[2017-12-31] MEDS: RINGERS LACTATED IV ×2 (00:22→04:32)
[2017-12-31] MEDS: POTASSIUM ACETATE IV ×2 (00:22→04:32)
[2017-12-31 05:05] LABS: ADD MAN DIFF? NO
[2017-12-31 05:22] LABS: BASO # 0.1 x10^3/uL (0.0-0.2); BASO % 1 % (0-3); EOS # 0.2 x10^3/uL (0.0-0.7); EOS % 2 % (0-3); HEMATOCRIT 25.5 % (36.0-47.0); HEMOGLOBIN 8.6 g/dL (12.0-15.5); LYMPH # 4.1 x10^3/uL (1.0-4.8); LYMPH % 41 % (24-48); MEAN CORPUSCULAR HEMOGLOBIN 29 pg (25-35); MEAN CORPUSCULAR HGB CONC 34 g/dL (31-37); MEAN CORPUSCULAR VOLUME 87 fL (79-100); MONO # 0.7 x10^3/uL (0.0-1.1); MONO % 7 % (0-9); NEUT % 50 % (31-73); PLATELET COUNT 216 x10^3/uL (140-400); RED BLOOD COUNT 2.94 x10^6/uL (3.50-5.40); RED CELL DISTRIBUTION WIDTH 13.3 % (11.5-14.5); WHITE BLOOD COUNT 9.9 x10^3/uL (4.0-11.0)
[2017-12-31 05:49] LABS: ALBUMIN 2.6 g/dL (3.4-5.0); ALBUMIN/GLOBULIN RATIO 0.8 (1.0-1.7); ALK PHOS 47 U/L (46-116); ALT (SGPT) 216 U/L (14-59); ANION GAP 7 (6-14); AST (SGOT) 62 U/L (15-37); BLOOD UREA NITROGEN 2 mg/dL (7-20); BUN/CREATININE RATIO 3 (6-20); CALCIUM 8.9 mg/dL (8.5-10.1); CARBON DIOXIDE 26 mmol/L (21-32); CHLORIDE 104 mmol/L (98-107); CREATININE 0.6 mg/dL (0.6-1.0); GFR 146.2; GLUCOSE 68 mg/dL (70-99); POTASSIUM 3.8 mmol/L (3.5-5.1); SODIUM 137 mmol/L (136-145); TOTAL BILIRUBIN 0.3 mg/dL (0.2-1.0)
== END 2017-12-31 06:03 | disposition home or self-care (01) | DRG 781 ==
LOC: ER 01:14 → 3 NORTH 12-29 11:00
DX: O99.282 Endocrine, nutritional and metabolic diseases complicating pregnancy, second trimester (principal); Z94.81 Bone marrow transplant status; O21.0 Mild hyperemesis gravidarum; O99.112 Other diseases of the blood and blood-forming organs and certain disorders involving the immune mechanism complicating pregnancy, second trimester; E86.0 Dehydration; D72.829 Elevated white blood cell count, unspecified; Z3A.14 14 weeks gestation of pregnancy; Z88.0 Allergy status to penicillin; Z88.8 Allergy status to other drugs, medicaments and biological substances
CPT/HCPCS: 36415; 36600; 80053; 81001; 82150; 82805; 83605; 83690; 85007; 85025; 96365; 96366; 99285-25; J2405; J2550; J2765; J7120; J8597; S0028

== ENCOUNTER 2018-01-20 14:45 | Inpatient (IN) | payer OTHER ==
[2018-01-20 15:48] LABS: URINE HCG POC HCG POSITIVE (Negative)
[2018-01-20 16:45] LABS: ADD MAN DIFF? NO
[2018-01-20 16:50] LABS: BASO # 0.1 x10^3/uL (0.0-0.2); BASO % 1 % (0-3); EOS % 0 % (0-3); HEMATOCRIT 33.1 % (36.0-47.0); HEMOGLOBIN 11.4 g/dL (12.0-15.5); LYMPH # 1.9 x10^3/uL (1.0-4.8); LYMPH % 22 % (24-48); MEAN CORPUSCULAR HEMOGLOBIN 29 pg (25-35); MEAN CORPUSCULAR HGB CONC 34 g/dL (31-37); MEAN CORPUSCULAR VOLUME 85 fL (79-100); MONO # 0.6 x10^3/uL (0.0-1.1); MONO % 7 % (0-9); NEUT # 5.8 x10^3uL (1.8-7.7); NEUT % 70 % (31-73); PLATELET COUNT 281 x10^3/uL (140-400); RED BLOOD COUNT 3.88 x10^6/uL (3.50-5.40); RED CELL DISTRIBUTION WIDTH 13.2 % (11.5-14.5); WHITE BLOOD COUNT 8.4 x10^3/uL (4.0-11.0)
[2018-01-20] MEDS: ONDANSETRON PF 4 MG/2 ML VIAL. IV ×2 (16:50→17:48)
[2018-01-20 17:00] LABS: BILIRUBIN,URINE SMALL (NEG); CLARITY,URINE CLEAR; COLOR,URINE AMBER; GLUCOSE,URINE NEGATIVE (NEG); NITRITE,URINE NEGATIVE (NEG); PH,URINE 6.5; PROTEIN,URINE 100 mg/dL (NEG-TRACE)
[2018-01-20 17:11] LABS: ANION GAP 19 (6-14); BLOOD UREA NITROGEN 8 mg/dL (7-20); BUN/CREATININE RATIO 10 (6-20); CALCIUM 9.6 mg/dL (8.5-10.1); CARBON DIOXIDE 16 mmol/L (21-32); CHLORIDE 101 mmol/L (98-107); CREATININE 0.8 mg/dL (0.6-1.0); GFR 104.9; GLUCOSE 129 mg/dL (70-99); POTASSIUM 3.3 mmol/L (3.5-5.1); SODIUM 136 mmol/L (136-145)
[2018-01-20 17:17] LABS: ALBUMIN 3.5 g/dL (3.4-5.0); ALBUMIN/GLOBULIN RATIO 0.7 (1.0-1.7); ALK PHOS 60 U/L (46-116); ALT (SGPT) 94 U/L (14-59); AST (SGOT) 54 U/L (15-37); TOTAL BILIRUBIN 0.5 mg/dL (0.2-1.0); TOTAL PROTEIN 8.3 g/dL (6.4-8.2)
[2018-01-20 17:18] LABS: BACTERIA,URINE MOD /HPF (0-FEW); RBC,URINE 0 /HPF (0-2); SQUAMOUS EPITHELIAL CELL,UR OCC /LPF
[2018-01-20] MEDS: POTASSIUM CHLORIDE 20 MEQ TABLET.ER. PO (17:45)
[2018-01-20] MEDS: IV NORMAL SALINE 1000ML BAG 1,000 ML IV ×2 (17:45→18:15)
[2018-01-20] MEDS: IV RINGERS,LACTATED 500ML 500 ML IV (18:15)
[2018-01-20] MEDS ORDERED: ACETAMINOPHEN 325 MG TABLET. PO (18:15)
[2018-01-20] MEDS ORDERED: ONDANSETRON PF 4 MG/2 ML VIAL. IV (18:15)
[2018-01-20] MEDS ORDERED: MAG HYDROX/ALUMINUM HYD/SIMETH 30 ML ORAL.SUSP PO (19:15)
[2018-01-20] MEDS: FAMOTIDINE 20 MG/2 ML VIAL IVP (21:53)
[2018-01-20] MEDS ORDERED: IV RINGERS,LACTATED 1000ML 1,000 ML IV (22:00)
[2018-01-20] MEDS: RINGERS LACTATED IV (22:22)
[2018-01-20] MEDS: ONDANSETRON IV (22:22)
[2018-01-21] MEDS: METOCLOPRAMIDE HCL 10 MG/2 ML VIAL. IV ×5 (02:13→23:01)
[2018-01-21] MEDS: RINGERS LACTATED IV ×4 (02:16→19:46)
[2018-01-21] MEDS: ONDANSETRON IV ×4 (02:16→19:46)
[2018-01-21 05:21] LABS: BASO % 0 % (0-3); EOS % 0 % (0-3); HEMATOCRIT 26.8 % (36.0-47.0); HEMOGLOBIN 9.2 g/dL (12.0-15.5); LYMPH # 1.1 x10^3/uL (1.0-4.8); LYMPH % 9 % (24-48); MEAN CORPUSCULAR HEMOGLOBIN 29 pg (25-35); MEAN CORPUSCULAR HGB CONC 35 g/dL (31-37); MEAN CORPUSCULAR VOLUME 85 fL (79-100); MONO # 0.3 x10^3/uL (0.0-1.1); MONO % 3 % (0-9); NEUT % 88 % (31-73); PLATELET COUNT 242 x10^3/uL (140-400); RED BLOOD COUNT 3.16 x10^6/uL (3.50-5.40); WHITE BLOOD COUNT 11.4 x10^3/uL (4.0-11.0)
[2018-01-21 05:25] LABS: ADD MAN DIFF? YES
[2018-01-21 05:42] LABS: ALBUMIN 2.9 g/dL (3.4-5.0); ALBUMIN/GLOBULIN RATIO 0.7 (1.0-1.7); ALK PHOS 50 U/L (46-116); ALT (SGPT) 111 U/L (14-59); ANION GAP 13 (6-14); AST (SGOT) 67 U/L (15-37); BLOOD UREA NITROGEN 7 mg/dL (7-20); BUN/CREATININE RATIO 14 (6-20); CALCIUM 8.7 mg/dL (8.5-10.1); CARBON DIOXIDE 19 mmol/L (21-32); CHLORIDE 105 mmol/L (98-107); CREATININE 0.5 mg/dL (0.6-1.0); GFR 180.5; GLUCOSE 113 mg/dL (70-99); POTASSIUM 3.8 mmol/L (3.5-5.1); SODIUM 137 mmol/L (136-145); TOTAL BILIRUBIN 0.4 mg/dL (0.2-1.0); TOTAL PROTEIN 6.9 g/dL (6.4-8.2)
[2018-01-21] MEDS: FAMOTIDINE 20 MG/2 ML VIAL IVP ×2 (08:41→20:55)
[2018-01-21] MEDS: PRENATAL MULTIVITAMIN TABLET. PO (09:00)
[2018-01-21 09:35] LABS: % BANDS 4 % (0-9); % LYMPHS 6 % (24-48); % MONOS 2 % (0-10); % SEGS 88 % (35-66); PLT ESTIMATE ADEQUATE (ADEQUATE)
[2018-01-21] MEDS: MEPERIDINE PF 25 MG/ML VIAL. IV (15:12)
[2018-01-21 15:21] LABS: ADD MAN DIFF? NO
[2018-01-21 15:23] LABS: BASO # 0.1 x10^3/uL (0.0-0.2); BASO % 1 % (0-3); EOS % 0 % (0-3); HEMOGLOBIN 9.2 g/dL (12.0-15.5); LYMPH % 15 % (24-48); MEAN CORPUSCULAR HEMOGLOBIN 29 pg (25-35); MEAN CORPUSCULAR HGB CONC 34 g/dL (31-37); MEAN CORPUSCULAR VOLUME 86 fL (79-100); MONO # 0.9 x10^3/uL (0.0-1.1); MONO % 7 % (0-9); NEUT # 10.1 x10^3uL (1.8-7.7); NEUT % 77 % (31-73); PLATELET COUNT 227 x10^3/uL (140-400); RED BLOOD COUNT 3.14 x10^6/uL (3.50-5.40); RED CELL DISTRIBUTION WIDTH 13.1 % (11.5-14.5); WHITE BLOOD COUNT 13.1 x10^3/uL (4.0-11.0)
[2018-01-21] MEDS: PROMETHAZINE 25 MG SUPP.RECT. PR (15:40)
[2018-01-22] MEDS: ONDANSETRON IV ×3 (01:57→21:05)
[2018-01-22] MEDS: RINGERS LACTATED IV ×3 (01:57→21:05)
[2018-01-22] MEDS: METOCLOPRAMIDE HCL 10 MG/2 ML VIAL. IV ×4 (05:57→23:51)
[2018-01-22] MEDS: PRENATAL MULTIVITAMIN TABLET. PO ×2 (09:00→09:25)
[2018-01-22] MEDS: FAMOTIDINE 20 MG/2 ML VIAL IVP ×2 (09:01→21:04)
[2018-01-22] MEDS: PROMETHAZINE 25 MG SUPP.RECT. PR ×2 (09:11→21:12)
[2018-01-22] MEDS: MEPERIDINE PF 25 MG/ML VIAL. IV (09:12)
[2018-01-23] MEDS: RINGERS LACTATED IV ×3 (03:42→21:36)
[2018-01-23] MEDS: ONDANSETRON IV ×3 (03:42→21:36)
[2018-01-23 08:08] LABS: ADD MAN DIFF? NO
[2018-01-23 08:17] LABS: BASO # 0.1 x10^3/uL (0.0-0.2); BASO % 1 % (0-3); EOS % 1 % (0-3); HEMOGLOBIN 8.6 g/dL (12.0-15.5); LYMPH # 3.2 x10^3/uL (1.0-4.8); LYMPH % 34 % (24-48); MEAN CORPUSCULAR HEMOGLOBIN 29 pg (25-35); MEAN CORPUSCULAR HGB CONC 34 g/dL (31-37); MEAN CORPUSCULAR VOLUME 86 fL (79-100); MONO # 0.6 x10^3/uL (0.0-1.1); MONO % 7 % (0-9); NEUT # 5.4 x10^3uL (1.8-7.7); NEUT % 58 % (31-73); PLATELET COUNT 205 x10^3/uL (140-400); RED BLOOD COUNT 2.93 x10^6/uL (3.50-5.40); RED CELL DISTRIBUTION WIDTH 12.7 % (11.5-14.5); WHITE BLOOD COUNT 9.4 x10^3/uL (4.0-11.0)
[2018-01-23 08:37] LABS: ALBUMIN 2.7 g/dL (3.4-5.0); ALBUMIN/GLOBULIN RATIO 0.8 (1.0-1.7); ALK PHOS 50 U/L (46-116); ALT (SGPT) 119 U/L (14-59); ANION GAP 11 (6-14); AST (SGOT) 59 U/L (15-37); BLOOD UREA NITROGEN 2 mg/dL (7-20); BUN/CREATININE RATIO 4 (6-20); CALCIUM 8.6 mg/dL (8.5-10.1); CARBON DIOXIDE 22 mmol/L (21-32); CHLORIDE 102 mmol/L (98-107); CREATININE 0.5 mg/dL (0.6-1.0); GFR 180.5; GLUCOSE 77 mg/dL (70-99); SODIUM 135 mmol/L (136-145); TOTAL BILIRUBIN 0.7 mg/dL (0.2-1.0)
[2018-01-23] MEDS: FAMOTIDINE 20 MG/2 ML VIAL IVP ×2 (09:52→21:36)
[2018-01-23] MEDS: BISACODYL 10 MG SUPP.RECT. PR (09:52)
[2018-01-23] MEDS: METOCLOPRAMIDE HCL 10 MG/2 ML VIAL. IV ×3 (09:53→21:36)
[2018-01-23] MEDS: POTASSIUM CHLORIDE IV ×2 (12:01→21:36)
[2018-01-23] MEDS: PROMETHAZINE 25 MG SUPP.RECT. PR ×2 (16:22→21:00)
[2018-01-24] MEDS: RINGERS LACTATED IV (04:15)
[2018-01-24] MEDS: POTASSIUM CHLORIDE IV (04:15)
[2018-01-24] MEDS: ONDANSETRON IV (04:15)
[2018-01-24] MEDS: METOCLOPRAMIDE HCL 10 MG/2 ML VIAL. IV (04:20)
[2018-01-24] MEDS: FAMOTIDINE 20 MG/2 ML VIAL IVP (09:18)
== END 2018-01-24 11:14 | disposition home or self-care (01) | DRG 781 ==
LOC: ER 14:45 → 3 NORTH 17:52
DX: O21.0 Mild hyperemesis gravidarum (principal); Z94.81 Bone marrow transplant status; Z3A.19 19 weeks gestation of pregnancy; Z88.0 Allergy status to penicillin; Z88.8 Allergy status to other drugs, medicaments and biological substances
CPT/HCPCS: 36415; 76770; 76805; 80053; 81001; 81025; 84702; 85007; 85025; 96361; 96374; 96376; 99285-25; J2060; J2175; J2405; J2765; J7030; J7120; S0028

== ENCOUNTER 2018-05-29 07:27 | Observation (INO) | payer OTHER ==
[2018-01-24 10:00] VITALS: BP 110/62
[~2018-05-29 07:27] MED LIST: METO10TA81 PO; NITR100C62 PO; ONDA4TAB10 SL; ONDA8TAB12 PO; PROM25SU32 RC; PROM25TA10 PO
[2018-05-29] MEDS ORDERED: IV RINGERS,LACTATED 1000ML 1,000 ML IV SCH (07:32)
[2018-05-29] MEDS ORDERED: ACETAMINOPHEN 325 MG TABLET. PO PRN (07:45)
[2018-05-29 08:08] LABS: BILIRUBIN,URINE SMALL (NEG); CLARITY,URINE CLOUDY; NITRITE,URINE NEGATIVE (NEG); PH,URINE 7.5; PROTEIN,URINE 30 mg/dL (NEG-TRACE)
[2018-05-29 08:15] LABS: BARBITURATES NEG (NEG); BENZODIAZEPINES NEG (NEG); CANNABINOIDS NEG (NEG); COCAINE NEG (NEG); METHADONE NEG (NEG); OPIATES NEG (NEG); PHENCYCLIDINE NEG (NEG)
[2018-05-29 08:19] LABS: AMPHETAMINE/METHAMPHETAMINE NEG (NEG)
[2018-05-29 08:34] LABS: COLOR,URINE YELLOW
[2018-05-29 08:35] LABS: BACTERIA,URINE MANY /HPF (0-FEW); SQUAMOUS EPITHELIAL CELL,UR MANY /LPF; WBC,URINE 20-40 /HPF (0-4)
[2018-05-29 09:16] LABS: BASO # 0.1 x10^3/uL (0.0-0.2); BASO % 1 % (0-3); EOS # 0.1 x10^3/uL (0.0-0.7); EOS % 1 % (0-3); HEMATOCRIT 31.3 % (36.0-47.0); HEMOGLOBIN 10.7 g/dL (12.0-15.5); LYMPH # 2.3 x10^3/uL (1.0-4.8); LYMPH % 27 % (24-48); MEAN CORPUSCULAR HEMOGLOBIN 29 pg (25-35); MEAN CORPUSCULAR HGB CONC 34 g/dL (31-37); MEAN CORPUSCULAR VOLUME 84 fL (79-100); MONO # 0.5 x10^3/uL (0.0-1.1); MONO % 6 % (0-9); NEUT # 5.6 x10^3uL (1.8-7.7); NEUT % 66 % (31-73); PLATELET COUNT 240 x10^3/uL (140-400); RED BLOOD COUNT 3.73 x10^6/uL (3.50-5.40); RED CELL DISTRIBUTION WIDTH 13.7 % (11.5-14.5); WHITE BLOOD COUNT 8.6 x10^3/uL (4.0-11.0)
[2018-05-29 09:36] LABS: ALBUMIN 2.7 g/dL (3.4-5.0); ALBUMIN/GLOBULIN RATIO 0.6 (1.0-1.7); CALCIUM 9.2 mg/dL (8.5-10.1); CREATININE 0.7 mg/dL (0.6-1.0); GFR 121.5; POTASSIUM 3.5 mmol/L (3.5-5.1); TOTAL BILIRUBIN 0.5 mg/dL (0.2-1.0); TOTAL PROTEIN 7.1 g/dL (6.4-8.2)
[2018-05-29] MEDS ORDERED: IV DEXTROSE 5%-LACT RINGERS 1,000 ML IV SCH (10:15)
[2018-06-02] MEDS ORDERED: HYDR-971 PO (09:24)
[2018-06-02] MEDS ORDERED: NAPR-514 PO (09:24)
== END 2018-05-29 16:55 | disposition home or self-care (01) ==
LOC: 3 SO LND 07:27
PROVIDERS: ADMIT Specialist; ATTEND Specialist
DX: O21.2 Late vomiting of pregnancy (principal); Z3A.34 34 weeks gestation of pregnancy
CPT/HCPCS: 36415; 80053; 80307; 81001; 85025; 87086; 96361; 96365; G0378; G0379; J3230; J7120; G0479

== ENCOUNTER 2018-05-30 02:34 | Inpatient (IN) | payer OTHER ==
[~2018-05-30] VITALS: Ht 170.2 cm; Wt 90.7 kg
[2018-05-30] MEDS ORDERED: 0.9 % SODIUM CHLORIDE 10 ML DISP.SYRIN. IV PRN (03:00)
[2018-05-30] MEDS: IV RINGERS,LACTATED 1000ML 1,000 ML IV SCH ×3 (03:23→18:45)
[2018-05-30] MEDS: METOCLOPRAMIDE HCL 10 MG/2 ML VIAL. IV SCH ×3 (03:24→22:00)
[2018-05-30] MEDS: ONDANSETRON PF 4 MG/2 ML VIAL. IV SCH ×4 (03:25→23:57)
[2018-05-30 03:44] LABS: BASO # 0.1 x10^3/uL (0.0-0.2); BASO % 1 % (0-3); EOS % 0 % (0-3); HEMATOCRIT 30.9 % (36.0-47.0); HEMOGLOBIN 10.4 g/dL (12.0-15.5); LYMPH # 2.4 x10^3/uL (1.0-4.8); LYMPH % 24 % (24-48); MEAN CORPUSCULAR HEMOGLOBIN 28 pg (25-35); MEAN CORPUSCULAR HGB CONC 34 g/dL (31-37); MEAN CORPUSCULAR VOLUME 84 fL (79-100); MONO # 0.5 x10^3/uL (0.0-1.1); MONO % 5 % (0-9); NEUT # 7.1 x10^3uL (1.8-7.7); NEUT % 70 % (31-73); PLATELET COUNT 257 x10^3/uL (140-400); RED BLOOD COUNT 3.67 x10^6/uL (3.50-5.40); RED CELL DISTRIBUTION WIDTH 14.1 % (11.5-14.5); WHITE BLOOD COUNT 10.1 x10^3/uL (4.0-11.0)
[2018-05-30 03:47] VITALS: BP 149/100
[2018-05-30 03:54] LABS: ALBUMIN/GLOBULIN RATIO 0.6 (1.0-1.7); CALCIUM 9.4 mg/dL (8.5-10.1); GFR 80.5; TOTAL BILIRUBIN 0.6 mg/dL (0.2-1.0); TOTAL PROTEIN 7.8 g/dL (6.4-8.2)
[2018-05-30 04:17] LABS: CHOLESTEROL/HDL RATIO 3.2
[2018-05-30 04:28] VITALS: BP 141/94
[2018-05-30 05:07] LABS: BILIRUBIN,URINE NEGATIVE (NEG); CLARITY,URINE CLEAR; COLOR,URINE AMBER; NITRITE,URINE NEGATIVE (NEG); PH,URINE 8.5; PROTEIN,URINE 30 mg/dL (NEG-TRACE)
[2018-05-30 05:14] LABS: BARBITURATES NEG (NEG); BENZODIAZEPINES NEG (NEG); CANNABINOIDS NEG (NEG); COCAINE NEG (NEG); METHADONE NEG (NEG); OPIATES NEG (NEG); PHENCYCLIDINE NEG (NEG)
[2018-05-30 05:15] LABS: AMPHETAMINE/METHAMPHETAMINE NEG (NEG)
[2018-05-30 05:27] LABS: RBC,URINE 0 /HPF (0-2)
[2018-05-30 05:28] LABS: BACTERIA,URINE MANY /HPF (0-FEW); SQUAMOUS EPITHELIAL CELL,UR MANY /LPF
[2018-05-30] MEDS: PANTOPRAZOLE IV PUSH 40 MG VIAL. IVP SCH (07:30)
[2018-05-30 13:36] VITALS: BP 141/92
--- NOTE | 2018-05-30 15:43 | PDOC1 ---
OB - History Hx of Present Care: Good Care Ultrasounds: Normal mid trimester US Obstetrical Complications: Hyperemesis Medical Complications: None Past Family/Social History * Past Medical, Surgical, Family and Obstetric Histories reviewed from chart. Blood Type: Unknown Rubella: Immune RPR/VDRL: Negative GBS Status: Unknown HBsAG: Negative OB - Chief Complaint & HPI Date of Admission: Date of Admission: May 30, 2018 at 02:34 Chief Complaint/History : 2 Para: 0 EGA: 36 Reason for admission: observation (hyperemesis) Admission Nurse Assessment Rev: Yes OB - Admission Exam Physical Exam Vitals: VS - Last 72 Hours, by Label Date Time Temp Pulse Resp B/P (MAP) Pulse Ox O2 Delivery O2 Flow Rate FiO2 05/30/18 13:36 98.6 84 141/92 (108) 98 Room Air 98.6 05/30/18 04:45 Room Air 05/30/18 04:28 98.2 100 20 141/94 (110) 100 Room Air 98.2 05/30/18 03:47 98.7 107 18 149/100 (116) 99 Room Air 98.7 HEENT: Normal Heart: Regular Rate Lungs: Clear, Equal Abdomen: Gravid, Soft, Tender Extremities: Edema Reflexes: Normal Cervical Dilatation: None Effacement: 0% Station: -3 Membranes: Intact Heart Rate: Normal Accelerations: Accelerations Present Contractions on Admission: None Text A: 36 wks IUP Hyperemesis P: Observation for rehydration with IV fluids and antiemetics. LELA ORTEGA Jr, MD May 30, 2018 15:43
[2018-05-30 18:40] VITALS: BP 145/88
[2018-05-31] MEDS ORDERED: OXYTOCIN 30 UNIT/500 ML PREMIX 500 ML IV PRN ×3 (00:30→11:45)
[2018-05-31] MEDS ORDERED: ONDANSETRON PF 4 MG/2 ML VIAL. IV PRN ×2 (00:30→08:00)
[2018-05-31] MEDS ORDERED: 0.9 % SODIUM CHLORIDE 10 ML DISP.SYRIN. IV PRN ×2 (00:30→11:45)
[2018-05-31] MEDS ORDERED: LIDOCAINE 1% PF 30 ML VIAL. INJ PRN (00:30)
[2018-05-31] MEDS ORDERED: IBUPROFEN 400 MG TABLET. PO PRN (00:30)
[2018-05-31] MEDS ORDERED: TERBUTALINE 1 MG/ML VIAL. SQ PRN (00:30)
[2018-05-31] MEDS ORDERED: fentaNYL PF VIAL 100 MCG/2 ML VIAL IV PRN (00:30)
[2018-05-31] MEDS ORDERED: VANCOMYCIN 1 GM in IV DEXTROSE 5% 250 ML IV SCH (00:30)
[2018-05-31] MEDS ORDERED: VANCOMYCIN 1 GM in IV NORMAL SALINE 250ML 250 ML IV SCH ×2 (00:30→00:36)
[2018-05-31 00:56] LABS: BASO # 0.1 x10^3/uL (0.0-0.2); BASO % 1 % (0-3); EOS % 0 % (0-3); HEMATOCRIT 31.4 % (36.0-47.0); HEMOGLOBIN 10.8 g/dL (12.0-15.5); LYMPH # 2.1 x10^3/uL (1.0-4.8); LYMPH % 16 % (24-48); MEAN CORPUSCULAR HEMOGLOBIN 28 pg (25-35); MEAN CORPUSCULAR HGB CONC 34 g/dL (31-37); MEAN CORPUSCULAR VOLUME 83 fL (79-100); MONO # 0.5 x10^3/uL (0.0-1.1); MONO % 4 % (0-9); NEUT # 10.3 x10^3uL (1.8-7.7); NEUT % 79 % (31-73); PLATELET COUNT 265 x10^3/uL (140-400); RED BLOOD COUNT 3.79 x10^6/uL (3.50-5.40); WHITE BLOOD COUNT 13.1 x10^3/uL (4.0-11.0)
[2018-05-31] MEDS: ONDANSETRON PF 4 MG/2 ML VIAL. IV SCH ×3 (05:23→18:00)
[2018-05-31] MEDS: METOCLOPRAMIDE HCL 10 MG/2 ML VIAL. IV SCH ×3 (05:23→22:00)
[2018-05-31] MEDS: IV RINGERS,LACTATED 1000ML 1,000 ML IV SCH ×2 (05:23→08:15)
[2018-05-31] MEDS ORDERED: IV RINGERS,LACTATED 1000ML 1,000 ML IV SCH (07:47)
[2018-05-31] MEDS ORDERED: BUPIVACAINE MPF 0.25% 30 ML VIAL. ONE (07:53)
[2018-05-31] MEDS ORDERED: L&D EPIDURAL SYRINGE 50 ML ONE (07:54)
[2018-05-31] MEDS ORDERED: NALBUPHINE 10 MG/ML AMPUL. IV PRN (08:00)
[2018-05-31] MEDS ORDERED: L&D EPIDURAL SYRINGE 50 ML EPID PRN (08:00)
[2018-05-31] MEDS ORDERED: BUPIVACAINE MPF 0.25% 10 ML VIAL. EPID PRN (08:00)
[2018-05-31] MEDS ORDERED: diphenhydrAMINE 50 MG/ML VIAL IV PRN (08:00)
[2018-05-31] MEDS ORDERED: fentaNYL PF VIAL 100 MCG/2 ML VIAL EPI PRN (08:00)
[2018-05-31] MEDS ORDERED: NALOXONE 0.4 MG/ML VIAL. IV PRN (08:00)
[2018-05-31] MEDS ORDERED: PROCHLORPERAZINE 10 MG/2 ML VIAL. IV PRN (08:00)
[2018-05-31] MEDS ORDERED: ROPIVacaine 0.2% IN 0.9%NACL PF 40 MG/20 ML DISP.SYRIN. EPID PRN (08:00)
[2018-05-31] MEDS ORDERED: IV RINGERS,LACTATED 500ML 500 ML IV PRN (08:00)
[2018-05-31] MEDS ORDERED: ePHEDrine PF IN SALINE 50 MG/5 ML DISP.SYRIN IV PRN (08:00)
[2018-05-31] MEDS ORDERED: FAMOTIDINE 20 MG TABLET. PO ONE (10:15)
[2018-05-31] MEDS: PANTOPRAZOLE IV PUSH 40 MG VIAL. IVP SCH (10:25)
--- NOTE | 2018-05-31 11:40 | PDOC ---
VAGINAL DELIVERY DATE DATE: 05/31/18 TIME: 11:38 : 2 Para: 1 EGA: 36 VAGINAL DELIVERY: VTX VACCUM ASSISTED: No PLACENTA: Spontaneous 8/9 SEX: Female WEIGHT Weight [ 4 lbs. 14 oz. ] Nuchal Cord: No Amniotic Fluid: Clear PAIN: Epidural EPISIOTOMY: No EXTENSION: No EBL 300 ml COMPLICATIONS none CONDITION pt. stable ADDITIONAL NOTES Pt. initially admitted for hypermesis and then had PPROM with onset of PTL. Signs of Intrauterine Infectio: None Shoulder Dystocia: No LELA ORTEGA Jr, MD May 31, 2018 11:39
[2018-05-31] MEDS ORDERED: SIMETHICONE 80 MG TAB.CHEW PO PRN (11:45)
[2018-05-31] MEDS ORDERED: ZOLPIDEM 5 MG TABLET. PO PRN (11:45)
[2018-05-31] MEDS ORDERED: diphenhydrAMINE HCL 25 MG CAPSULE PO PRN (11:45)
[2018-05-31] MEDS ORDERED: BENZOCAINE 20% TOPICAL AEROSOL SPRAY 57GM CAN. TP PRN (11:45)
[2018-05-31] MEDS ORDERED: DOCUSATE SODIUM 100 MG CAPSULE. PO PRN (11:45)
[2018-05-31] MEDS ORDERED: HYDROCORTISONE 1% TOPICAL OINTMENT 30GM TUBE. TP PRN (11:45)
[2018-05-31] MEDS ORDERED: MAGNESIUM HYDROXIDE 2,400 MG/30 ML ORAL.SUSP. PO PRN (11:45)
[2018-05-31] MEDS ORDERED: MAG HYDROX/ALUMINUM HYD/SIMETH 30 ML ORAL.SUSP PO PRN (11:45)
[2018-05-31] MEDS ORDERED: ACETAMINOPHEN 325 MG TABLET. PO PRN (11:45)
[2018-05-31] MEDS ORDERED: MMR per PROTOCOL. MC PRN (11:45)
[2018-05-31] MEDS ORDERED: PHENYLEPH/MINERAL OIL/PETROLAT RECTAL OINTMENT 28GM TUBE. RC PRN (11:45)
[2018-05-31] MEDS ORDERED: oxyCODONE/APAP 5/325 1 TAB TABLET PO PRN (11:45)
[2018-05-31 15:04] VITALS: BP 117/66
[2018-05-31 16:15] VITALS: BP 106/72
[2018-05-31] MEDS ORDERED: FERROUS SULFATE 325 MG TABLET. PO SCH (17:00)
[2018-05-31 21:23] VITALS: BP 148/91
[2018-06-01] MEDS: IBUPROFEN 400 MG TABLET. PO PRN ×2 (00:06→22:39)
[2018-06-01 03:38] VITALS: BP 148/102
[2018-06-01 04:46] LABS: BASO # 0.1 x10^3/uL (0.0-0.2); BASO % 1 % (0-3); EOS % 0 % (0-3); HEMATOCRIT 32.3 % (36.0-47.0); HEMOGLOBIN 10.9 g/dL (12.0-15.5); LYMPH # 2.4 x10^3/uL (1.0-4.8); LYMPH % 12 % (24-48); MEAN CORPUSCULAR HEMOGLOBIN 28 pg (25-35); MEAN CORPUSCULAR HGB CONC 34 g/dL (31-37); MEAN CORPUSCULAR VOLUME 84 fL (79-100); MONO # 0.7 x10^3/uL (0.0-1.1); MONO % 4 % (0-9); NEUT # 16.1 x10^3uL (1.8-7.7); NEUT % 83 % (31-73); PLATELET COUNT 257 x10^3/uL (140-400); RED BLOOD COUNT 3.84 x10^6/uL (3.50-5.40); RED CELL DISTRIBUTION WIDTH 14.1 % (11.5-14.5); WHITE BLOOD COUNT 19.4 x10^3/uL (4.0-11.0)
[2018-06-01] MEDS: ONDANSETRON PF 4 MG/2 ML VIAL. IV SCH ×2 (06:00)
[2018-06-01] MEDS: METOCLOPRAMIDE HCL 10 MG/2 ML VIAL. IV SCH (06:00)
[2018-06-01 06:37] VITALS: BP 137/87
[2018-06-01 06:59] LABS: % LYMPHS 8 % (24-48); % MONOS 5 % (0-10); % SEGS 87 % (35-66); PLT ESTIMATE ADEQUATE (ADEQUATE)
[2018-06-01 10:21] VITALS: BP 154/108
[2018-06-01 11:23] LABS: ALBUMIN 2.8 g/dL (3.4-5.0); ALBUMIN/GLOBULIN RATIO 0.7 (1.0-1.7); CALCIUM 8.8 mg/dL (8.5-10.1); CREATININE 0.7 mg/dL (0.6-1.0); GFR 121.5; POTASSIUM 3.5 mmol/L (3.5-5.1); TOTAL BILIRUBIN 0.9 mg/dL (0.2-1.0); TOTAL PROTEIN 6.8 g/dL (6.4-8.2); URIC ACID 5.4 mg/dL (2.6-6.0)
[2018-06-01 13:50] VITALS: BP 134/101
[2018-06-01 17:55] VITALS: BP 116/80
[2018-06-01 23:29] VITALS: BP 133/96
[2018-06-02 06:29] VITALS: BP 126/87
--- NOTE | 2018-06-02 09:13 | PDOC ---
Provider Note Provider Note late entry 06/01/18 Doing well VSS Uterus NTTP Fu in AM HAN GARCIAS MD Jun 02, 2018 09:13
--- NOTE | 2018-06-02 09:21 | PDOC3 ---
OB DISCHARGE SUMMARY DATE OF ADMISSION: 05/31/18 DATE OF DISCHARGE: 06/02/18 REASON FOR ADMISSION: Onset of labor, SROM PROCEDURES: Ultrasound INTRAPARTUM PROCEDURES: Spontanous Vag Deliv PROCEDURES: None OPERATIONS: None DISCHARGE DIAGNOSIS: Term Delivered DISCHARGE INFORMATION: Activity, Diet HOSPITAL COURSE unremarkable CONDITION AT DISCHARGE come HAN GARCIAS MD Jun 02, 2018 09:21
[2018-06-02] MEDS ORDERED: NAPR-514 PO (09:24)
[2018-06-02] MEDS ORDERED: HYDR-971 PO (09:24)
[2018-06-02 12:51] VITALS: BP 142/94
--- NOTE | 2018-06-03 16:08 | PATHOLOGY ---
[facility] Accession Number: [id number] . 01 Material submitted: . PLACENTA AND CORD . 01 Clinician provided ICD-10: O80 . 01 Clinical history: . Spontaneous vaginal delivery with premature rupture of membranes; hyperemesis; 36.6 weeks Additional history per requisition . 02 Diagnosis: 382 gram late placenta of an estimated 36-37 weeks gestation with attached membranes and umbilical cord: - Marginal insertion of umbilical cord. - Septal cyst, small. - Small early organizing retroplacental hematoma. LBQ/06/03/2018 . 02 Comment: There is no evidence of an acute chorioamnionitis or villitis. There are no infarcts. (JPM/db; 06/03/18) . 02 Electronically signed: . Galen Cote MD, Pathologist NPI- [id number] . 01 Gross description: . Received in formalin labeled "Carter [place], placenta," is an ovoid finch placenta with attached membranes and umbilical cord. The trimmed placental disc weighs 382 g and measures 14.8 x 13.5 by up to 3.2 cm in greatest dimensions. The membranes are pale simon and slightly edematous in appearance, and the site of the membrane rupture is 5.7 cm from the nearest placental disc edge. The surface is intact and dusky blue-mckeon in appearance, displaying arborizing vasculature. The trivascular umbilical cord inserts marginally. The cord measures 41 cm in length by up to 1.3 cm in diameter and is pale simon to dusky mckeon-simon in appearance, displaying moderate helical twisting. The maternal surface cotyledons are intact and complete. There are light simon deposits noted that encompass approximately 20% of the total maternal surface. Serial sectioning reveals spongy, dark red-brown cut surfaces. A single parenchymal cyst is noted, measuring 0.4 cm in maximum dimension and encompassing less than 1% of the total placental disc volume. Also noted upon sectioning is an area of blood clot measuring 0.5 cm in maximum dimension and encompassing less than 1% of the total placental disc volume. The specimen is submitted representatively as follows: . A1: Umbilical cord and surface vessels A2: Membrane roll and peripheral placental segment A3-A4: Full-thickness placental cross section, divided between and maternal surfaces A5: Ward Aide maternal surface fibrous deposits A6: Parenchymal cyst and blood clot (DAC; 06/02/2018) XDC/XDC . 02 Pathologist provided ICD-10: O43.893, Z37.0, Z3A.36 . 02 CPT . [id number] Specimen Comment: A courtesy copy of this report has been sent to Specimen Comment: [phone]. Specimen Comment: Report sent to Performed at: 01 [facility] [address], [place] [id number] MD Akbar Grider MD Phone: [phone] Performed at: 02 [facility] [address], [place] [id number] MD Galen Cote MD Phone: [phone]
== END 2018-06-02 15:33 | disposition home or self-care (01) | DRG 805 ==
LOC: 3 SO LND 02:34 → OBSVTOIN 02:34 → 3 NORTH 04:15 → 3 SO LND 05-31 00:05 → 3 NORTH 05-31 14:09
PROVIDERS: ADMIT Obstetrics & Gynecology; ATTEND Obstetrics & Gynecology
PROC: 10E0XZZ Delivery of Products of Conception, External Approach (ICD-10-PCS; principal; 2018-05-30)
PROC: 00HU33Z Insertion of Infusion Device into Spinal Canal, Percutaneous Approach (ICD-10-PCS; 2018-05-30)
PROC: 3E0R3BZ Introduction of Anesthetic Agent into Spinal Canal, Percutaneous Approach (ICD-10-PCS; 2018-05-30)
DX: O42.913 Preterm premature rupture of membranes, unspecified as to length of time between rupture and onset of labor, third trimester (principal); O60.14X0 Preterm labor third trimester with preterm delivery third trimester, not applicable or unspecified; Z37.0 Single live birth; O21.2 Late vomiting of pregnancy; Z3A.36 36 weeks gestation of pregnancy
CPT/HCPCS: 36415; 80053; 80061; 80307; 81001; 82150; 84550; 85007; 85025; 86592; 86703; 86762; 86850; 86900; 86901; 87086; 87340; 87653; 88307; C9113; G0378; J2405; J2590; J2765; J3010; J3370; J7050; J7120; Q0163; G0479; J7030